=== PATIENT | male | born 2005 ===

== ENCOUNTER 2023-12-17 07:36 | Day surgery (SDC) | payer OTHER ==
[2023-12-11 09:24] LABS: PH,URINE 6.5 (5.0-8.0); URINE APPEARANCE Clear; URINE BILIRRUBIN Negative (NEGATIVE); URINE BLOOD Negative; URINE COLOR Yellow; URINE GLUCOSE Negative (NEGATIVE); URINE LEUKOCYTE Negative; URINE NITRATE Negative; URINE PROTEIN Negative (NEGATIVE); URINE UROBILINOGEN 0.2 E.U./dl
[2023-12-11 09:27] LABS: HEMATOCRIT 45.6 % (39.0-48.0); HEMOGLOBIN 15.8 g/dL (13-16.00); MEAN CELL VOLUME 85.3 fL (80.0-100.00); MEAN CORPUSCULAR HEMOGLOBIN 29.6 pg (27.00-32.0); MEAN CORPUSCULAR HGB CONC 34.7 g/dl (32.0-36.0); PLATELET COUNT 141 K/uL (150-450); RED BLOOD COUNT 5.35 M/uL (4.00-6.00); RED CELL DISTRIBUTION WIDTH 14.1 % (11.5-14.5)
[2023-12-11 09:39] LABS: URINE BACTERIA 1.2 uL (0.0-1933); URINE EPITHELIAL CELLS 0.3 uL (0.0-38.8); URINE RBC 0.2 uL (0.0-20.8); URINE WBC 1.5 uL (0.0-23.2)
[2023-12-11 09:58] LABS: PARTIAL THROMBOPLASTIN TIME 32.8 SECONDS (22.0-34.0); PROTHROMBIN TIME 10.5 SECONDS (9.0-11.5)
[2023-12-11 10:04] LABS: BILIRUBIN TOTAL 0.52 mg/dL (0.3-1.2); CALCIUM 9.5 mg/dL (8.5-10.1); CREATININE SERUM 1.19 mg/dL (0.70-1.30); GFR 77.94; GLOBULINA 3.2 G/DL (2.4-3.5); POTASSIUM 3.88 mEq/L (3.5-5.1); TOTAL PROTEIN 7.2 gm/dL (6.4-8.2)
[2023-12-17] MEDS ORDERED: CEFAZOLIN SODIUM 1,000 MG VIAL ONE (09:17)
[2023-12-17] MEDS ORDERED: BUPIVACAINE HCL/PF 0.5% 30ML ML ONE (10:48)
[2023-12-17] MEDS ORDERED: KETOROLAC TROMETHAMINE 30 MG VIAL ONE (10:48)
[2023-12-17] MEDS ORDERED: LIDOCAINE HCL 1%/Epi 20ML VIAL IJ ONE ×2 (10:48→11:00)
[2023-12-17] MEDS ORDERED: CEFAZOLIN SODIUM 1,000 MG VIAL IV ONE (11:00)
[2023-12-17] MEDS ORDERED: KETOROLAC TROMETHAMINE 30 MG VIAL IJ ONE (11:00)
[2023-12-17] MEDS ORDERED: KETOROLAC TROMETHAMINE 30 MG VIAL IV ONE (11:00)
[2023-12-17] MEDS ORDERED: BUPIVACAINE HCL/PF 0.5% 30ML ML IJ ONE (11:00)
== END 2023-12-17 16:30 | disposition home or self-care (01) ==
LOC: CIR.AMB 07:36
PROVIDERS: ATTEND Orthopaedic Surgery
DX: S53.31XA Traumatic rupture of right ulnar collateral ligament, initial encounter (principal); Z20.822 Contact with and (suspected) exposure to COVID-19